=== PATIENT | female | born 1975 | race Caucasian/White ===

== ENCOUNTER 2020-07-18 07:33 | Emergency (ER) | payer BC ==
[2020-07-18] MEDS ORDERED: ACETAMINOPHEN TAB 325 MG TAB PO STA (07:58)
[2020-07-18] MEDS ORDERED: IBUPROFEN 600 MG TAB PO STA (07:58)
--- NOTE | 2020-07-18 08:00 | ED ---
General Adult HPI - General Chief complaint: Upper Respiratory Infection Stated complaint: Upper Respiratory Issue Time Seen by Provider: 07/18/20 07:41 Source: patient, RN notes reviewed Mode of arrival: ambulatory Limitations: no limitations - History of Present Illness Initial comments: 45-year-old female presents emergency Department chief complaint of fever cough congestion bodies. Patient states started to 2 days ago. Patient states that she has a headache, cough which is dry nonproductive no shortness breath no chest pain. Slight nausea decreased appetite. Patient had no sick contacts no significant past no medications. - Related Data Allergies Allergy/AdvReac Type Severity Reaction Status Date / Time No Known Allergies Allergy Verified 07/18/20 07:39 Review of Systems ROS Statement: Those systems with pertinent positive or pertinent negative responses have been documented in the HPI. ROS Other: All systems not noted in ROS Statement are negative. Past Medical History Past Medical History: No Reported History History of Any Multi-Drug Resistant Organisms: None Reported Past Surgical History: Section, Tonsillectomy Past Psychological History: No Psychological Hx Reported Smoking Status: Never smoker Past Alcohol Use History: None Reported Past Drug Use History: None Reported General Exam Limitations: no limitations General appearance: alert, in no apparent distress Head exam: Present: atraumatic, normocephalic, normal inspection Eye exam: Present: normal appearance, PERRL, EOMI. Absent: scleral icterus, conjunctival injection, periorbital swelling ENT exam: Present: normal exam, normal oropharynx, mucous membranes moist Neck exam: Present: normal inspection, full ROM. Absent: tenderness, meningismus, lymphadenopathy Respiratory exam: Present: normal lung sounds bilaterally. Absent: respiratory distress, wheezes, rales, rhonchi, stridor Cardiovascular Exam: Present: normal rhythm, tachycardia, normal heart sounds. Absent: systolic murmur, diastolic murmur, rubs, gallop, clicks Neurological exam: Present: alert, oriented X3, CN II-XII intact, reflexes normal. Absent: motor sensory deficit Skin exam: Present: warm, dry, intact, normal color. Absent: rash Course Vital Signs 07/18/20 07:36 Temperature 100.8 F H Pulse Rate 104 H Respiratory 20 Rate Blood Pressure 114/68 O2 Sat by Pulse 95 Oximetry Medical Decision Making - Medical Decision Making X-rays unremarkable. Patient has positive covid test. Patient is right is stable patient does not qualify for monoclonal antibodies. Patient be discharged in stable condition return parameters were discussed. - Lab Data Lab Results 07/18/20 Range/Units 08:21 Coronavirus (PCR) Detected A (Not Detectd) Disposition Clinical Impression: COVID-19 Disposition: HOME SELF-CARE Condition: Stable Instructions (If sedation given, give patient instructions): Coronavirus Disease 2019 (COVID-19) Additional Instructions: Please return to the Emergency Department if symptoms worsen or any other concerns. Is patient prescribed a controlled substance at d/c from ED?: No Referrals: Nonstaff,Physician [Primary Care Provider] - 1-2 days Time of Disposition: 08:38
--- NOTE | 2020-07-18 08:15 | XR ---
EXAMINATION TYPE: XR chest 2V DATE OF EXAM: 07/18/2020 COMPARISON: None HISTORY: Cough TECHNIQUE: Frontal and lateral views of the chest are obtained. FINDINGS: There is a small partially consolidative opacity in the left lung base and a probable smal l left pleural effusion. Findings are consistent with an acute pneumonic process. Clinical correlatio n follow-up is recommended. The right lung is clear. There is no pneumothorax. The heart size, pulmonary vasculature and mediastinum appear normal. The osseous structures are intact. IMPRESSION: Right lung base opacity and tiny left pleural effusion. The findings suggest acute pneumonic process and clinical correlation follow-up to resolution is recommended. IMPRESSION: No acute cardiopulmonary process.
[2020-07-18 09:04] VITALS: BP 91/60; PULSE 93; RESP 18; TEMP 100.3
== END 2020-07-18 09:06 | disposition home or self-care (01) ==
LOC: EC 07:33
DX: U07.1 COVID-19 (principal)
CPT/HCPCS: 71046; 87635; 99284